=== PATIENT | male | born 1955 | race Two or more races ===

== ENCOUNTER 2024-02-10 01:20 | Emergency (ER) | payer OTHER ==
[~2024-02-10] VITALS: Ht 170.2 cm; Wt 72.6 kg
[2024-02-10] MEDS ORDERED: RINGERS SOLUTION,LACTATED 1,000 ML IV STA (02:15)
[2024-02-10] MEDS ORDERED: ONDANSETRON HCL 2 MG/ML VIAL IV STA (02:16)
[2024-02-10] MEDS ORDERED: FAMOtidine 10 MG/ML (4ML VIAL) IV PUSH STA (02:16)
[2024-02-10] MEDS ORDERED: THIAMINE HCL 100 MG/ML 2 ML VIAL IV STA (02:17)
[2024-02-10 03:22] LABS: HEMATOCRIT 41.9 % (39.0-48.0); HEMOGLOBIN 14.4 g/dL (13-16.00); MEAN CELL VOLUME 94.6 fL (80.0-100.00); MEAN CORPUSCULAR HEMOGLOBIN 32.6 pg (27.00-32.0); MEAN CORPUSCULAR HGB CONC 34.5 g/dl (32.0-36.0); PLATELET COUNT 149 K/uL (150-450); RED BLOOD COUNT 4.43 M/uL (4.00-6.00); RED CELL DISTRIBUTION WIDTH 13.4 % (11.5-14.5)
[2024-02-10 03:42] LABS: INR 1.05; PARTIAL THROMBOPLASTIN TIME 21.6 SECONDS (22.0-34.0)
[2024-02-10 03:44] LABS: ALBUMIN 3.7 gm/dL (3.4-5.0); BILIRUBIN TOTAL 0.56 mg/dL (0.3-1.2); CALCIUM 8.5 mg/dL (8.5-10.1); CREATININE SERUM 1.03 mg/dL (0.70-1.30); GFR 72.03; GLOBULINA 3.4 G/DL (2.4-3.5); POTASSIUM 3.97 mEq/L (3.5-5.1); TOTAL PROTEIN 7.1 gm/dL (6.4-8.2)
== END 2024-02-10 05:16 | disposition home or self-care (01) ==
LOC: ER 01:20
DX: S00.83XA Contusion of other part of head, initial encounter (principal); W19.XXXA Unspecified fall, initial encounter; Y93.89 Activity, other specified; Y92.098 Other place in other non-institutional residence as the place of occurrence of the external cause; Y99.8 Other external cause status; R41.82 Altered mental status, unspecified; F10.10 Alcohol abuse, uncomplicated
CPT/HCPCS: 36415; 70450; 96365; 99284; J2405; J3490 ×2